=== PATIENT | male | born 1965 | race Caucasian/White ===

== ENCOUNTER 2023-10-19 07:38 | Day surgery (SDC) | payer BC, OTHER ==
[2023-10-19] MEDS ORDERED: Sodium Chloride 0.9% 10 ML Syringe FLUSH PRN (08:00)
[2023-10-19] MEDS: Lactated Ringers 1,000 ML IV SCH (08:28)
[2023-10-19] MEDS ORDERED: Midazolam 1 MG/ML 2 ML SDV ONE (08:36)
[2023-10-19] MEDS ORDERED: Propofol 200 MG/20 ML SDV ONE (08:37)
[2023-10-19] MEDS ORDERED: Lidocaine 2% 5 ML SDV ONE (09:01)
== END 2023-10-19 10:25 | disposition home or self-care (01) ==
LOC: LL.SDS 07:38
PROVIDERS: ATTEND Surgery
DX: Z12.11 Encounter for screening for malignant neoplasm of colon (principal); K29.50 Unspecified chronic gastritis without bleeding; K21.00 Gastro-esophageal reflux disease with esophagitis, without bleeding; E78.5 Hyperlipidemia, unspecified; G47.00 Insomnia, unspecified; Z87.891 Personal history of nicotine dependence; Z79.899 Other long term (current) drug therapy; Z91.030 Bee allergy status
CPT/HCPCS: 00813; J2704; J3490; J7120